=== PATIENT | female | born 1960 | race Asian ===

== ENCOUNTER 2021-12-16 16:46 | Emergency (ER) | payer MEDICAID ==
[2021-12-16] MEDS ORDERED: Acetaminophen/HYDROcodone 325-5 MG Tab PO ONE (18:42)
[2021-12-16] MEDS ORDERED: Phenazopyridine 95 MG Tab PO ONE (18:47)
[2021-12-16] MEDS ORDERED: cefTRIAXone 1 GM, Lidocaine 1% 2.1 ML IM ONE ×2 (19:14)
== END 2021-12-16 19:44 | disposition home or self-care (01) ==
LOC: JP.ED 16:46
DX: N39.0 Urinary tract infection, site not specified (principal); Z88.8 Allergy status to other drugs, medicaments and biological substances; Z88.6 Allergy status to analgesic agent
CPT/HCPCS: 81001; 87086; 87088; 96372; 99283; A9270-GY; J0696